=== PATIENT | female | born 1955 | race Caucasian/White ===

== ENCOUNTER 2020-07-15 21:31 | Emergency (ER) | payer OTHER ==
[~2020-07-15] VITALS: Ht 160 cm; Wt 63.6 kg
[2020-07-15] MEDS ORDERED: HYDROmorphone 2 MG/ML VIAL IV ONE (21:45)
[2020-07-15] MEDS ORDERED: IV NORMAL SALINE 1000ML BAG 1,000 ML IV ONE (21:45)
--- NOTE | 2020-07-15 21:45 | PHYS DOC ---
General Adult EDM: Chief Complaint: MECHANICAL FALL HPI: HPI: The history was obtained from the patient. Patient is a 64-year-old female with PMH tobacco abuse who presents with a chief complaint of left wrist pain. Patient states she is a right-handed individual. She states just prior to arrival she slipped on a wet floor at work. She states that her left arm was abducted and fully extended when she landed on outstretched arm. She noted left wrist pain. EMS reports left wrist deformity. She denies numbness or tingling to the extremity. She did receive 200 mcg of fentanyl IV in route prior to arrival. Denies elbow pain. No other complaints. Review of Systems: Review of Systems: Constitutional: Denies fever or chills. [] Eyes: Denies change in visual acuity. [] HENT: Denies nasal congestion or sore throat. [] Respiratory: Denies cough or shortness of breath. [] Cardiovascular: Denies chest pain or edema. [] GI: Denies abdominal pain, nausea, vomiting, bloody stools or diarrhea. [] : Denies dysuria. [] Musculoskeletal: Positive for wrist pain Integument: Denies rash. [] Neurologic: Denies headache, focal weakness or sensory changes. [] Endocrine: Denies polyuria or polydipsia. [] Lymphatic: Denies swollen glands. [] Psychiatric: Denies depression or anxiety. [] Heart Score: Risk Factors: Risk Factors: DM, Current or recent (<one month) smoker, HTN, HLP, family history of CAD, obesity. Risk Scores: Score 0 - 3: 2.5% MACE over next 6 weeks - Discharge Home Score 4 - 6: 20.3% MACE over next 6 weeks - Admit for Clinical Observation Score 7 - 10: 72.7% MACE over next 6 weeks - Early Invasive Strategies Current Medications: Current Medications Medications (Trade) Dose Ordered Sig/Stacy Start Time Stop Time Status Last Admin Dose Admin Hydromorphone HCl (Dilaudid) 1 mg 1X ONCE 07/15/20 21:45 07/15/20 21:46 UNV Sodium Chloride 1,000 ml @ 1,000 mls/hr 1X ONCE 07/15/20 21:45 07/15/20 22:44 UNV Allergies: Allergies: Allergies Coded Allergies Type Severity Reaction Last Updated Verified No Known Drug Allergies 07/15/20 No Physical Exam: PE: Constitutional: Well developed, well nourished, no acute distress, non-toxic appearance. [] HENT: Normocephalic, atraumatic, bilateral external ears normal, oropharynx moist, no oral exudates, nose normal. [] Eyes: PERRLA, EOMI, conjunctiva normal, no discharge. [] Neck: Normal range of motion, no tenderness, supple, no stridor. [] Cardiovascular:Heart rate regular rhythm, no murmur [] Lungs & Thorax: Bilateral breath sounds clear to auscultation [] Abdomen: soft, no tenderness, no masses, no pulsatile masses. [] Skin: Warm, dry, no erythema, no rash. [] Back: No tenderness, no CVA tenderness. [] Extremities: L HAND/WRIST: Tenderness to palpation present at the dorsal aspect of the left wrist. Anatomic snuffbox without tenderness to palpation. Joints exhibit limited range of motion without ligamentous laxity or instability. All tendons tested actively and against resistance without laxity. Subungual hematomas and nail injuries are absent. Radial pulse is present; +2/4. Capillary refill is less than 2 seconds. Sensation is intact in the median, ulnar and radial nerve distributions. Strength is intact in the median, ulnar and radial nerve distributions. Cyanosis, erythema, and pallor are absent. Neurologic: Alert and oriented X 3, normal motor function, normal sensory function, no focal deficits noted. [] Psychologic: Affect normal, judgement normal, mood normal. [] Current Patient Data: Vital Signs: Vital Signs Date Time Temp Pulse Resp B/P (MAP) Pulse Ox O2 Delivery O2 Flow Rate FiO2 07/15/20 21:32 98.0 76 20 176/83 (114) 98 Room Air 98.0 EKG: EKG: [] Radiology/Procedures: Radiology/Procedures: PROCEDURE: Splint application & evaluation Because of the condition described above in the chart, I decided it would be best for the patient's injury to be immobilized. A sugar tong was placed on the left upper extremity by nursing, using Ortho-Glass to splint, under my quevedo pervision. After application, I evaluated the extremity and deemed it to be satisfactorily immobilized. In addition, the patient's distal neurological and vascular examination was unchanged, and without evidence of compartment syndrome. The patient tolerated the procedure well. [facility] [address] [place] [address] IMAGING REPORT Signed PATIENT: ALEC ROMO ACCOUNT: [id number] : 1955 LOCATION: ER AGE: 64 SEX: F EXAM STATUS: PRE ER ORD. PHYSICIAN: TD ANGEL DO REASON: wrist pain PROCEDURE: WRIST 3V LEFT Exam: Left wrist 3 views INDICATION: Wrist pain TECHNIQUE: Frontal, lateral oblique views of the left wrist Comparisons: None FINDINGS: There is an impacted fracture of the distal left radius. Additionally there is a fracture at the base of the ulnar styloid. Joint spaces are well-maintained. Soft tissues are unremarkable. Bone mineralization is normal. IMPRESSION: Impacted fracture of the distal left radial metaphysis. Ulnar styloid fracture. Electronically signed by: Atiya Butcher MD (07/15/2020 10:04 PM) AIYANA DICTATED and SIGNED BY: ATIYA BUTCHER MD DATE: 07/15/202203 [facility] [address] [place], [place] [id number] IMAGING REPORT Signed PATIENT: ALEC ROMO ACCOUNT: [id number] : 1955 LOCATION: ER AGE: 64 SEX: F EXAM STATUS: PRE ER ORD. PHYSICIAN: TD ANGEL DO REASON: wrist pain PROCEDURE: ELBOW LEFT 2V Exam: Left elbow 2 views INDICATION: Wrist pain TECHNIQUE: Frontal and lateral views the left wrist Comparisons: None FINDINGS: Bone mineralization is normal. No acute or healed fractures. Soft tissues are unremarkable. Joint spaces are well-maintained. IMPRESSION: No acute osseous abnormality. Electronically signed by: Atiya Butcher MD (07/15/2020 10:05 PM) AIYANA DICTATED and SIGNED BY: ATIYA BUTCHER MD DATE: 07/15/202204 [] Course & Med Decision Making: Course & Med Decision Making Pertinent Labs and Imaging studies reviewed. (See chart for details) [] Patient is a right-handed 64-year-old female who presents with chief complaint of left wrist injury status post falling on outstretched arm. Plain film imaging reveals a impacted distal left radius fracture. Very slight dorsal angulation. Neurovascular intact. I did discuss the case with orthopedic surgeon . He recommended sugar tong splint and follow-up in clinic. She was instructed to call his clinic tomorrow morning to schedule an appointment early next week. She be discharged home with pain medication. Post splint assessment does reveal intact neurovascular status with good capillary refill. Patient appropriate for discharge home. Dragon Disclaimer: Dragon Disclaimer: This electronic medical record was generated, in whole or in part, using a voice recognition dictation system. Departure Departure Impression: Primary Impression: Distal radius fracture, left Qualified Codes: S52.502A - Unspecified fracture of the lower end of left radius, initial encounter for closed fracture Additional Impression: Fracture of ulnar styloid Qualified Codes: S52.615A - Nondisplaced fracture of left ulna styloid process, initial encounter for closed fracture Disposition: 01 HOME, SELF-CARE Condition: STABLE Referrals: SOFIA ARMSTRONG II, MD Patient Instructions: Radius Fracture with [facility] Additional Instructions: Please call orthopedic surgery clinic tomorrow morning to schedule an appointment early next week. Scripts Hydrocodone/Apap 5-325 (NORCO 5-325 TABLET) 1 Each Tablet 1-2 EACH PO PRN Q6HRS PRN for PAIN, #10 as needed for pain Prov: TD ANGEL DO 07/15/20 Ibuprofen (IBUPROFEN) 600 Mg Tablet 600 MG PO PRN Q6HRS PRN for PAIN, #20 TAB take with food or milk Prov: TD ANGEL DO 07/15/20 TD ANGEL DO Jul 15, 2020 21:45
--- NOTE | 2020-07-15 22:07 | RAD ---
Exam: Left wrist 3 views INDICATION: Wrist pain TECHNIQUE: Frontal, lateral oblique views of the left wrist Comparisons: None FINDINGS: There is an impacted fracture of the distal left radius. Additionally there is a fracture at the base of the ulnar styloid. Joint spaces are well-maintained. Soft tissues are unremarkable. Bone mineralization is normal. IMPRESSION: Impacted fracture of the distal left radial metaphysis. Ulnar styloid fracture. Electronically signed by: Atiya Griffin MD (07/15/2020 10:04 PM) AIYANA
--- NOTE | 2020-07-15 22:08 | RAD ---
Exam: Left elbow 2 views INDICATION: Wrist pain TECHNIQUE: Frontal and lateral views the left wrist Comparisons: None FINDINGS: Bone mineralization is normal. No acute or healed fractures. Soft tissues are unremarkable. Joint spaces are well-maintained. IMPRESSION: No acute osseous abnormality. Electronically signed by: Atiya Griffin MD (07/15/2020 10:05 PM) AIYANA
[2020-07-15] MEDS ORDERED: HYDR-3164 PO (22:31)
[2020-07-15] MEDS ORDERED: IBUP-1007 PO (22:31)
[2020-07-15 22:35] VITALS: BP 141/68
[2020-07-15] MEDS ORDERED: ONDANSETRON ODT 4 MG TAB.RAPDIS. ONE (23:02)
== END 2020-07-15 23:05 | disposition home or self-care (01) ==
LOC: ER 21:31
DX: S52.615A Nondisplaced fracture of left ulna styloid process, initial encounter for closed fracture (principal); S52.592A Other fractures of lower end of left radius, initial encounter for closed fracture; M25.522 Pain in left elbow; Z72.0 Tobacco use; W01.0XXA Fall on same level from slipping, tripping and stumbling without subsequent striking against object, initial encounter; Y93.89 Activity, other specified; Y92.69 Other specified industrial and construction area as the place of occurrence of the external cause; Y99.0 Civilian activity done for income or pay
CPT/HCPCS: 29125; 73070; 73110; 96360; 99284; J1170; J7030